=== PATIENT | male | born 1970 | race Caucasian/White ===

== ENCOUNTER 2018-08-11 07:37 | Outpatient (CLI) | payer BC, SELFPAY ==
--- NOTE | 2018-08-11 07:44 | DI.US_ITS ---
SYMPTOMS/DIAGNOSIS: RIGHT LOWER QUADRANT BURNING SENSATION, SUPRAPUBIC, ? HERNIA, ? APPENDICITIS LIMITED ABDOMINAL ULTRASOUND: Ultrasound examination was performed utilizing limited protocol. There is no evidence of an abdominal hernia in the lower abdomen. There is nonvisualization of the appendix, but no specific evidence of appendicitis. There is an approximately 2 cm in greatest diameter hyperechoic, solid avascular lesion of the subcutaneous fat in the left lower quadrant; the findings are suggestive of a lipoma. CONCLUSION: Probable subcutaneous lipoma, left lower quadrant. No additional significant findings. If there is a clinical suspicion of hernia or appendicitis, evaluation with abdominal and pelvic CT would be recommended.
== END 2018-08-11 07:57 ==
PROVIDERS: PCP Family Medicine; Visit Provider Nurse Practitioner Family
DX: R10.31 Right lower quadrant pain (principal); D17.39 Benign lipomatous neoplasm of skin and subcutaneous tissue of other sites
CPT/HCPCS: 76705

== ENCOUNTER 2019-04-09 08:02 | Outpatient (CLI) | payer BC, SELFPAY ==
[2019-04-09 10:14] LABS: Calculated LDL 121 mg/dL; Cholesterol 202 mg/dL (50-200); Glucose 98 mg/dL (70-100); HDL Cholesterol 44 mg/dL (40-60); Triglyceride 189 mg/dL (30-150)
== END 2019-04-09 08:22 ==
PROVIDERS: PCP Family Medicine; Visit Provider Family Medicine
DX: Z00.00 Encounter for general adult medical examination without abnormal findings (principal); Z13.220 Encounter for screening for lipoid disorders; Z13.1 Encounter for screening for diabetes mellitus
CPT/HCPCS: 36415; 80061; 82947; 83721

== ENCOUNTER 2021-04-23 01:26 | Outpatient (CLI) | payer BC, SELFPAY ==
--- NOTE | 2021-04-23 11:02 | DI.RAD_ITS ---
Exam(s) XR SHOULDER RT COMPLETE 2+V EXAM: XR SHOULDER RT COMPLETE 2+V CLINICAL HISTORY: shoulder pain for one year; no identifiable injury,TENDER AC JOINT,M25.511. TECHNIQUE: 2D digital imaging was performed. COMPARISON: No exams were available for comparison FINDINGS: There is no evidence of fracture or dislocation of the humeral head. A subtle osteophytic density is noted subjacent to the osseous glenoid, possibly reflecting the presence of an osseous Bankart lesio n. There is no evidence of Hill-Sachs deformity in humeral head. No calcifications in the subacromi al space. Mild degenerative changes in the AC joint. No obvious degenerative changes in the glenohu meral joint. No osseous lesions. IMPRESSION: Small calcific density noted off the inferior osseous glenoid, possibly significant with respect to p ossible bony Bankart lesion. However, there is no evidence of obvious Hill-Sachs deformity. DATA REPOSITORY: RADIATION DOSE DELIVERED:
== END 2021-04-23 01:46 ==
PROVIDERS: PCP Family Medicine; Visit Provider Family Medicine
DX: M85.811 Other specified disorders of bone density and structure, right shoulder (principal); M25.511 Pain in right shoulder
CPT/HCPCS: 73030

== ENCOUNTER 2021-12-25 04:29 | Outpatient (CLI) | payer BC, SELFPAY ==
[2021-12-25 14:14] LABS: Calculated LDL 75 mg/dL (<100); Cholesterol 182 mg/dL (<200); Glucose 96 mg/dL (74-106); HDL Cholesterol 47 mg/dL (40-60); Triglyceride 304 mg/dL (<150)
[2021-12-25 22:44] LABS: PSA, Screening 0.5 ng/mL (<=3.5)
== END 2021-12-25 04:30 | disposition home or self-care (01) ==
LOC: LBO 04:29
PROVIDERS: PCP Family Medicine; Visit Provider Family Medicine
DX: E78.5 Hyperlipidemia, unspecified (principal); R73.9 Hyperglycemia, unspecified; Z12.5 Encounter for screening for malignant neoplasm of prostate
CPT/HCPCS: 36415; 80061; 82947; 84153

== ENCOUNTER 2022-12-03 12:22 | Outpatient (CLI) | payer BC, SELFPAY ==
[2022-12-03 10:55] LABS: Abs Immature Grans 0.03 10^3/uL (0.0-0.06); Absolute Basophil Count 0.05 10^3/uL (0.0-0.2); Absolute Eosinophil Count 0.19 10^3/uL (0.0-0.7); Absolute Lymphocyte Count 2.12 10^3/uL (1.2-3.4); Absolute Monocyte Count 0.57 10^3/uL (0.1-0.8); Absolute Neutrophil Count 4.77 10^3/uL (1.2-6.7); Basophils % 0.6; Eosinophils % 2.5; HCT 44.8 % (40.0-50.0); HGB 15.1 g/dL (13.5-17.5); Immature Grans % 0.4; Lymphocytes % 27.4; MCH 29.1 pg (27.0-33.0); MCHC 33.7 % (32.0-36.0); MCV 86 fL (80-95); MPV 8.5 fL (8.0-11.0); Monocytes % 7.4; Neutrophils % 61.7; Platelet Count 303 10^3/uL (130-400); RBC 5.19 10^6/uL (4.36-5.78); RDW 12.2 % (11.8-14.1); RDW-SD 38.6 fL; WBC 7.73 10^3/uL (4.4-10.8)
[2022-12-03 11:23] LABS: ALT 37 U/L (16-63); AST 18 U/L (15-37); Albumin 4.3 g/dL (3.4-5.0); Alkaline Phosphatase 64 U/L (46-116); Anion Gap 8.6 mmol/L (3-11); BUN 14 mg/dL (7-18); Bilirubin, Total 0.4 mg/dL (0.2-1.0); CO2 29.4 mmol/L (21.0-32.0); CREATININE 0.9 mg/dL (0.70-1.30); Calculated LDL 114 mg/dL (<100); Chloride 100 mmol/L (98-107); Cholesterol 228 mg/dL (<200); Glucose 100 mg/dL (74-106); HDL Cholesterol 49 mg/dL (40-60); Potassium 4.1 mmol/L (3.5-5.1); Sodium 138 mmol/L (136-145); Total Protein 7.5 g/dL (6.4-8.2); Triglyceride 327 mg/dL (<150)
== END 2022-12-03 12:23 | disposition home or self-care (01) ==
LOC: LBO 12:22
PROVIDERS: PCP Family Medicine; Visit Provider Surgery
DX: E78.5 Hyperlipidemia, unspecified (principal); R10.32 Left lower quadrant pain; K21.9 Gastro-esophageal reflux disease without esophagitis; K62.5 Hemorrhage of anus and rectum
CPT/HCPCS: 36415; 80053; 80061; 85025

== ENCOUNTER 2022-12-16 07:38 | Day surgery (SDC) | payer BC, SELFPAY ==
[2022-12-16 07:59] VITALS: BP 130/89; PULSE 76; RESP 16; TEMP 36.4; O2SAT 98
[2022-12-16] MEDS: Lactated Ringers 1,000 ML 80 ML IV (08:10)
--- NOTE | 2022-12-16 08:32 | ANES.PREOP_ITS ---
General Info Date of Service Date Performed: 12/16/22 Height: 5 ft 8 in Weight: 95.254 kg Body Mass Index (BMI): 31.9 Surgical Procedure: Operation Date: 12/16/22 09:10 Proposed Procedure Side Surgeon p Colonoscopy Gino Eaton MD s Possible Hemorrhoid Banding Gino Eaton MD Meds Allergies and Home Medications Allergies Allergy/AdvReac Type Severity Reaction Status Date / Time Iodinated Contrast Media Allergy Severe Verified 12/16/22 07:55 [Iodinated Contrast- Oral and IV Dye] iopamidol AdvReac Severe INJ SITE Verified 12/13/22 12:14 ARM/HAND PAIN Home Medication Medication Instructions Recorded multivitamin (One-A-Day Essential 1 tab PO DAILY 02/16/13 tablet) ascorbic acid (vitamin C) 500 mg 500 mg PO DAILY 11/11/17 capsule,extended release (Vitamin C) cholecalciferol (vitamin D3) 25 1,000 unit PO DAILY 11/11/17 mcg (1,000 unit) tablet vitamin E (dl, acetate) 45 mg (100 100 unit PO DAILY 11/11/17 unit) capsule magnesium 250 mg tablet 250 mg PO DAILY 10/27/19 naproxen sodium 750 mg 750 mg PO PRN 04/18/21 tablet,extended release 24 hr mphase fluocinonide 0.05 % topical 1 applic topical BID PRN rash on 01/14/22 solution scalp #60 mL famotidine 40 mg tablet 40 mg PO DAILY #90 tabs 03/07/22 bisacodyl 5 mg tablet,delayed 5 mg PO ONCE #4 tabs 12/03/22 release (Dulcolax (bisacodyl)) polyethylene glycol 3350 17 17 g PO ONCE #238 grams 12/03/22 gram/dose oral powder Current Visit Medications: Current Medications Generic Name Dose Route Start Last Admin Trade Name Freq PRN Reason Stop Dose Admin Ringer's Solution 1,000 mls @ 80 mls/hr 12/16/22 06:00 12/16/22 08:10 IV 01/12/23 23:59 80 mls/hr INFUSION GROVER Administration IV Miscellaneous Supplies 1 each 12/16/22 06:00 Iv Access IV 01/12/23 23:59 DIRECTED GROVER Sodium Chloride 0 ml 12/16/22 06:00 Normal Saline Flush 10 Ml Syr IV 01/12/23 23:59 PRN PRN Sodium Chloride 0 ml 12/16/22 06:00 Normal Saline 10 Ml Vial IJ 01/12/23 23:59 DIRECTED PRN Sterile Water 0 ml 12/16/22 06:00 Water,Injection,Sterile 10 Ml Vial IJ 01/12/23 23:59 DIRECTED PRN PFSH Active Problems Active Problems: Problem Status Onset Code Abnormal auditory perception 05/11/18 H93.299 Deviated nasal septum 05/11/18 J34.2 Gastroesophageal reflux disease K21.9 Hearing loss of left ear 05/12/18 H91.92 Hyperlipidemia 02/17/13 E78.5 Nasal septal spur 05/11/18 J34.89 Sensorineural hearing loss, bilateral 05/11/18 H90.3 Tinnitus 05/12/18 H93.19 Encounter for annual physical exam Z00.00 Dermatitis L30.9 Right shoulder pain M25.511 Arthritis of right acromioclavicular joint M19.011 Screening for colon cancer Z12.11 Rectal bleed K62.5 LLQ abdominal pain R10.32 Lipoma D17.9 Medical History Medical History Diverticulitis per pt. Snoring Medical History Comments:: Per pt. stated my father said he almost didn't come out of it alive, but i have no diea what that meant he didn't get into it Tobacco Smoking/Tobacco Use Status: Former Tobacco Use Smokeless tobacco user: chewing tobacco Passive smoking exposure: Yes Second hand exposure: Yes Alcohol Alcohol Intake: current Alcohol intake frequency: holidays/special occasions only Alcohol type: beer, wine and hard liquor Substance Use Substance use: Never Substance use type: does not use Vital Signs and Lab Results Vital Signs Most Recent Vital Signs in EMR: Most Recent Vital Signs Temp Pulse Resp BP Pulse Ox 36.4 C L 76 16 130/89 98 12/16/22 07:59 12/16/22 07:59 12/16/22 07:59 12/16/22 07:59 12/16/22 07:59 Lab Results Blood Type / Crossmatch: No Data to Display Complete Blood Count: White Blood Count 7.73 10^3/uL (4.4-10.8) 12/03/22 10:45 Red Blood Count 5.19 10^6/uL (4.36-5.78) 12/03/22 10:45 Hemoglobin 15.1 g/dL (13.5-17.5) 12/03/22 10:45 Hematocrit 44.8 % (40.0-50.0) 12/03/22 10:45 Platelet Count 303 10^3/uL (130-400) 12/03/22 10:45 Complete Metabolic Panel: Sodium 138 mmol/L (136-145) 12/03/22 10:45 Potassium 4.1 mmol/L (3.5-5.1) 12/03/22 10:45 Chloride 100 mmol/L (98-107) 12/03/22 10:45 Carbon Dioxide 29.4 mmol/L (21.0-32.0) 12/03/22 10:45 BUN 14 mg/dL (7-18) 12/03/22 10:45 Creatinine 0.9 mg/dL (0.70-1.30) 12/03/22 10:45 Est GFR (CKD-EPI 2020) 103.40 (mL/min/1.73m2) 12/03/22 10:45 Calcium 9.0 mg/dL (8.5-10.1) 12/03/22 10:45 Albumin 4.3 g/dL (3.4-5.0) 12/03/22 10:45 Glucose 100 mg/dL (74-106) 12/03/22 10:45 Liver Function Panel: Alanine Aminotransferase (ALT/SGPT) 37 U/L (16-63) 12/03/22 10: 45 Aspartate Amino Transf (AST/SGOT) 18 U/L (15-37) 12/03/22 10:45 Coagulation Panel: No Data to Display Cardiac Panel: No Data to Display Arterial Blood Gas: No Data to Display Venous Blood Gas: No Data to Display Pancreas Panel: No Data to Display Thyroid Panel: No Data to Display Infectious Disease: No Data to Display Blood Cultures: No Data to Display Toxicology Panel: No Data to Display Anesthesia Assessment and Plan Anesthesia History Personal History: No History of Anesthesia Complications and Other Family History: No Family History of Anesthesia Complications (dad had some kind of episode under anesthesia. no info) and Other Exercise Tolerance Exercise Tolerance: Metabolic Equivalents>4 Pertinent Negatives Pertinent Negatives: No Symptoms of GERD Cardiac & Pulmonary Exam Cardiac Exam: Normal S1/S2 Heart Sounds Pulmonary Exam: Clear Bilateral Breath Sounds Implantable Cardiac Device Does patient have a Pacemaker or an ICD?: No Airway Exam Known Difficult Airway: No Mallampati Class: 2 Mouth Opening: Normal (> 3cm) Thyromental Distance: Greater than 3 cm Neck Range of Motion: Full ROM Neck Circumference: Normal Teeth Condition: Normal Dentition ASA Classification ASA Score: ASA 2 Emergency Case?: No NPO Status NPO Status: NPO Clears >2 hours, Solids >8 hours Anesthesia Plan Resuscitation Status: Full Code Anesthesia Technique: General Anesthesia Airway Planned: Natural Airway Monitors Used: Standard Monitors
[2022-12-16 08:35] VITALS: BMI 31.9
--- NOTE | 2022-12-16 09:00 | W.COLOREPORT ---
Date of service: 12/16/22 Time of Service: 09:15 Colonoscopy Report Procedure Description: Procedures performed: 1. Colonoscopy Preoperative diagnosis: Surveillance colonoscopy Postoperative diagnosis: Mild grade 1 internal hemorrhoids, mild external hemorrhoids, minimal sigmoid diverticular disease Surgeon: Gurinder Eaton Anesthesia: Thompson Indication for procedure: The patient is a 52-year-old man who has no family history of colon cancer. He is not having any symptoms. Prior colonoscopy 10 years ago or so found hyperplastic polyp only. He occasionally/rarely has seen some spotting of bright red blood that is presumably hemorrhoid disease. No pain or symptoms. Findings: Normal terminal ileum. Normal right colon. There is no apolinar diverticulosis in the left/sigmoid colons however the sigmoid colon does have the beginnings of diverticular changes in the folds. Definitely no diverticulitis or inflammation anywhere. Mild, grade 1 internal hemorrhoids are present. Mild external hemorrhoids noted. Surveillance/follow-up recommendations: I recommend repeating another colonoscopy in 10 years from a colorectal cancer surveillance standpoint. His hemorrhoidal disease is not significant enough to warrant intervention. Complications: None Blood loss: Minimal Specimens:?? None Quality of Prep: Excellent Procedure in detail: Written consent was obtained from the patient who was in agreement with the risks, benefits and indications of the procedure.? We went to the endoscopy suite and laid the patient in left lateral decubitus position.? Anesthesia was administered which was tolerated well.? A timeout was performed and when we are all in agreement we began the procedure. Digital rectal exam and visual examination was performed and within normal limits.? A well?lubricated colonoscope was advanced without difficulty all the way to the cecum identified by the ileocecal valve, and triangular folds and appendiceal orifice.? The terminal ileum was intubated and appeared normal visually. It was then slowly withdrawn.?? Retroflexion was performed in the rectum.? The findings/interventions are noted above. The scope was then removed and the patient tolerated the procedure well and was then taken back to the PACU in hemodynamically stable condition.
[2022-12-16 09:30] VITALS: BP 97/72; PULSE 71; RESP 16; TEMP 36.7; O2SAT 95
--- NOTE | 2022-12-16 09:49 | W.ANESPOSTOP ---
Postoperative Evaluation Date, Time and Location Date Performed: 12/16/22 Time Performed: 09:30 Patient Location: Day Surgery Unit Vital Signs Most Recent Imported Vital Signs: Most Recent Vital Signs Temp Pulse Resp BP Pulse Ox 36.7 C 71 16 97/72 L 95 12/16/22 09:30 12/16/22 09:30 12/16/22 09:30 12/16/22 09:30 12/16/22 09:30 Pain Score Most Recent Pain Score: Most Recent Pain Score Pain Level 0 12/16/22 09:30 Assessment Mental Status: Awake (Alert & Oriented to Patient Baseline) Airway and Respiratory Function: Patent airway with normal (patient baseline) respiratory exam Cardiovascular Function: Hemodynamically Stable Hydration Status: Adequately Hydrated Nausea & Vomiting: No Nausea or Vomiting Pain: Pt. Denies Any Pain Peripheral Nerve Block: Patient did not receive a nerve block
[2022-12-16 09:50] VITALS: BP 110/76; PULSE 72; RESP 16; TEMP 36.5; O2SAT 95
== END 2022-12-16 10:20 | disposition home or self-care (01) ==
PROVIDERS: PCP Family Medicine; Visit Provider Student in an Organized Health Care Education/Training Program
PROC: 0DJD8ZZ Inspection of Lower Intestinal Tract, Via Natural or Artificial Opening Endoscopic (ICD-10-PCS; CPT 45378; principal; 2022-12-16 09:00)
DX: Z12.11 Encounter for screening for malignant neoplasm of colon (principal); K57.30 Diverticulosis of large intestine without perforation or abscess without bleeding; K64.0 First degree hemorrhoids; K64.4 Residual hemorrhoidal skin tags
CPT/HCPCS: 45378

== ENCOUNTER 2024-03-10 04:44 | Outpatient (CLI) | payer BC, SELFPAY ==
[2024-03-10 09:26] LABS: Hemoglobin A1C 5.9 % (<5.7)
[2024-03-10 09:31] LABS: Calculated LDL 119 mg/dL (<100); Cholesterol 205 mg/dL (<200); HDL Cholesterol 52 mg/dL (40-60); Triglyceride 173 mg/dL (<150)
== END 2024-03-10 04:45 | disposition home or self-care (01) ==
LOC: LBO 04:44
PROVIDERS: PCP Family Medicine; Visit Provider Family Medicine
DX: E11.51 Type 2 diabetes mellitus with diabetic peripheral angiopathy without gangrene (principal); E78.5 Hyperlipidemia, unspecified
CPT/HCPCS: 36415; 80061; 83036

== ENCOUNTER 2025-07-27 10:47 | Outpatient (CLI) | payer BC, SELFPAY ==
[2025-07-27 13:00] LABS: Anion Gap 10.1 mmol/L (3-11); BUN 11 mg/dL (7-18); CO2 26.9 mmol/L (21.0-32.0); Calcium 9.0 mg/dL (8.5-10.1); Chloride 100 mmol/L (98-107); Glucose 102 mg/dL (74-106); Potassium 3.9 mmol/L (3.5-5.1); Sodium 137 mmol/L (136-145)
[2025-07-27 13:05] LABS: Hemoglobin A1C 5.8 % (<5.7)
== END 2025-07-27 10:48 | disposition home or self-care (01) ==
LOC: LOS 10:47
PROVIDERS: PCP Family Medicine; Visit Provider Nurse Practitioner Family
DX: R73.03 Prediabetes (principal)
CPT/HCPCS: 36415; 80048; 83036